=== PATIENT | male | born 1970 | race Caucasian/White ===

== ENCOUNTER 2020-07-08 15:42 | Emergency (ER) | payer SELFPAY ==
[~2020-07-08] VITALS: Ht 167.6 cm; Wt 78.0 kg
[2020-07-08 16:25] VITALS: BP 134/99
--- NOTE | 2020-07-08 16:30 | NUR ---
PT C/O CHILLS, COUGH, X2 DAYS. PT STATES HE WAS WASHING HIS CAR 2 DAYS AGO AND GOT HIS SHOES WET AND STAYED IN THEM FOR 2 HOURS WET. DENIES FEVER. DENIES BEING AROUND COVID +. HX DENIES RX DENIES
--- NOTE | 2020-07-08 16:44 | NUR ---
Covid swab collected and walked to lab.
[2020-07-08 16:45] VITALS: BP 134/99
--- NOTE | 2020-07-08 16:45 | NUR ---
Patient discharged with v/s stable. Written and verbal after care instructions given and explained. Patient alert, oriented and verbalized understanding of instructions. Ambulatory with steady gait. All questions addressed prior to discharge. ID band removed. Patient advised to follow up with PMD. Rx of Promethazine DM 6.25mg-15mg/5ml given. Patient educated on indication of medication including possible reaction and side effects. Opportunity to ask questions provided and answered.
--- NOTE | 2020-07-09 15:58 | NUR ---
Received + covid result from lab. Copy to [facility] at infection control.
== END 2020-07-08 16:45 | disposition home or self-care (01) ==
LOC: MED 15:42
DX: R05 Cough (principal); Z20.828 Contact with and (suspected) exposure to other viral communicable diseases; Z98.890 Other specified postprocedural states
CPT/HCPCS: 99283; U0003

== ENCOUNTER 2022-06-01 16:06 | Emergency (ER) | payer MEDICAID, OTHER ==
[~2022-06-01] VITALS: Ht 170.2 cm; Wt 78.9 kg
[2022-06-01 16:29] VITALS: BP 141/94
--- NOTE | 2022-06-01 17:00 | NUR ---
C/O 03/26 RIGHT LOWER BACK PAIN, NAUSEA X 2 DAYS. PT TOOK ACETAMINOPHEN #3 2 HOURS AGO. PMH: DENIES
[2022-06-01] MEDS ORDERED: KETOROLAC 30 MG/ML VIAL IM ONE (17:10)
[2022-06-01] MEDS ORDERED: HYDROcodone/APAP 5/325 MG 1 TAB TAB PO ONE (18:00)
[2022-06-01 18:25] LABS: BASOPHILS % (AUTO) 0.3 % (0.0-2.0); EOSINOPHILS % (AUTO) 0.6 % (0.0-4.0); HEMATOCRIT 45.8 % (36-52); HEMOGLOBIN 15.9 g/dL (12.0-18.0); LYMPHOCYTES # (AUTO) 2.5 K/uL (2.0-11.5); MEAN CORPUSCULAR HEMOGLOBIN 30 pg (27-31); MEAN CORPUSCULAR HGB CONC 35 g/dL (33-37); MEAN CORPUSCULAR VOLUME 86.2 fL (80-94); MONOCYTES # (AUTO) 0.5 K/uL (0.8-1.0); NEUTROPHILS # (AUTO) 5.6 K/uL (1.8-7.7); NEUTROPHILS % (AUTO) 64.1 % (42.2-75.2); PLATELET COUNT (AUTO) 252 K/uL (140-450); RED BLOOD CELL COUNT(AUTO) 5.31 MIL/uL (4.20-6.10); RED CELL DISTRIBUTION WIDTH 13.4 % (11.6-13.7); WHITE BLOOD COUNT (AUTO) 8.7 K/uL (4.8-10.8)
[2022-06-01 19:38] LABS: ALBUMIN 4.2 g/dL (3.4-5.0); ANION GAP 13.4 (8-16); CARBON DIOXIDE 26.5 mmol/L (21-32); POTASSIUM 3.9 mmol/L (3.5-5.1); TOTAL BILIRUBIN 0.4 mg/dL (0.0-1.0)
--- NOTE | 2022-06-01 19:49 | NUR ---
PA IN TRIAGE UPDATING PT
[2022-06-01] MEDS ORDERED: LID5T TP (19:51)
[2022-06-01] MEDS ORDERED: ONDA-188 PO (19:51)
[2022-06-01] MEDS ORDERED: IBUP-2213 PO (19:51)
--- NOTE | 2022-06-01 19:59 | NUR ---
NO ANSWER WHEN CALLED FROM TRIAGE FOR DISCHARGE PAPERWORK
--- NOTE | 2022-06-01 20:14 | NUR ---
NO ANSWER WHEN CALLED FOR DISCHARGE
[2022-06-01 20:18] LABS: APPEARANCE,URINE CLEAR (CLEAR); BILIRUBIN,URINE NEGATIVE (NEGATIVE); BLOOD, URINE NEGATIVE (NEGATIVE); COLOR,URINE YELLOW (YELLOW); LEUKOCYTE ESTERASE ,URINE NEGATIVE (NEGATIVE); NITRITE, URINE NEGATIVE (NEGATIVE); UGLUCOSE NEGATIVE (NEGATIVE)
[2022-06-01 20:42] VITALS: BP 141/94
--- NOTE | 2022-06-01 20:42 | NUR ---
PT ELOPED FROM ED WITHOUT DISCHARGE INSTRUCTIONS
== END 2022-06-01 20:42 | disposition home or self-care (01) ==
LOC: MED 16:06
DX: M54.50 Low back pain, unspecified (principal); R10.9 Unspecified abdominal pain; R03.0 Elevated blood-pressure reading, without diagnosis of hypertension; Z79.899 Other long term (current) drug therapy
CPT/HCPCS: 36415; 74176; 80053; 81003; 83690; 85025; 96372; 99284; J1885; 81002